=== PATIENT | female | born 1960 | race Caucasian/White ===

== ENCOUNTER 2018-07-27 12:43 | Outpatient (REF) | payer MEDICAID, SELFPAY ==
[2018-07-27 13:20] LABS: HCT 43.2 % (36.0-46.0); HGB 13.8 g/dL (12.0-15.5); Mean Corp. HGB Concentration 31.9 g/dL (32.0-36.0); Mean Corpuscular Hemoglobin 28.8 pg (27.0-33.0); Mean Platelet Volume 11.8 fL (8.0-11.0); Platelet Count 227 x1000/uL (130-400); RBC Distribution Width 14.7 % (11.7-14.6); White Blood Cell Count 7.76 k/cumm (4.4-10.8)
[2018-07-27 13:32] LABS: ALT 18 U/L (12-78); AST 19 U/L (15-37); Albumin 3.5 g/dL (3.4-5.0); Alkaline Phosphatase 126 U/L (46-116); Anion Gap 9.1 mmol/L (3-11); BUN 21 mg/dL (7-18); Bilirubin, Total 0.2 mg/dL (0.2-1.0); CO2 28.9 mmol/L (21.0-32.0); Calcium 8.7 mg/dL (8.5-10.1); Chloride 107 mmol/L (98-107); Cholesterol 151 mg/dL (50-200); Estimated GFR 57.15 (mL/min/1.73m2); Glucose 103 mg/dL (70-100); HDL Cholesterol 39 mg/dL (40-60); LDL CHOLESTEROL 105 mg/dL (<100); Potassium 4.7 mmol/L (3.5-5.1); Sodium 145 mmol/L (136-145); TSH (W/Ref FT4) 3.05 uIU/mL (0.358-3.74); Total Protein 6.7 g/dL (6.4-8.2); Triglyceride 88 mg/dL (30-150)
== END 2018-07-27 13:03 ==
LOC: NCHCN 12:43
PROVIDERS: PCP Nurse Practitioner; Visit Provider Nurse Practitioner
DX: Z00.00 Encounter for general adult medical examination without abnormal findings (principal); Z13.29 Encounter for screening for other suspected endocrine disorder; Z13.0 Encounter for screening for diseases of the blood and blood-forming organs and certain disorders involving the immune mechanism; Z13.228 Encounter for screening for other metabolic disorders; Z13.220 Encounter for screening for lipoid disorders
CPT/HCPCS: 80053; 80061; 83721; 85027; 84443